=== PATIENT | female | born 1965 | race Caucasian/White ===

== ENCOUNTER 2019-06-22 09:00 | Day surgery (SDC) | payer OTHER ==
[~2019-06-22] VITALS: Ht 165.1 cm; Wt 81.5 kg
[~2019-06-22 09:00] MED LIST: ALBU90OI61 INH; CHOL10002 PO; CLON.1 PO; DOCU100 PO; ESCI20 PO; ESTR2; FISH1000 PO; FLUSAL1005 INH; IBUP800 PO; LEVSOD50 PO; LORA1 PO; MEDR5; OXYACE5T PO; QUET25; Sprintec1 EACH PO; TOCO400 PO; VERA80 PO
== END 2019-06-22 10:56 | disposition home or self-care (01) ==
LOC: ORSCSDS 09:00
PROVIDERS: Internal Medicine Gastroenterology
PROC: 0DJD8ZZ Inspection of Lower Intestinal Tract, Via Natural or Artificial Opening Endoscopic (ICD-10-PCS; principal; 2019-06-22 10:45)
DX: Z12.11 Encounter for screening for malignant neoplasm of colon (principal); K64.8 Other hemorrhoids; I10 Essential (primary) hypertension; E03.9 Hypothyroidism, unspecified; G47.33 Obstructive sleep apnea (adult) (pediatric); Z79.899 Other long term (current) drug therapy
CPT/HCPCS: J2704; J7120

== ENCOUNTER → 2019-08-20 | Outpatient (CLI) | payer OTHER | END | disposition home or self-care (01) | LOC: LAB 11:44 → LAB SHORT 11:44 | DX: J02.9 Acute pharyngitis, unspecified (principal) | CPT/HCPCS: 87081 ==